=== PATIENT | female | born 1990 | race Two or more races ===

== ENCOUNTER 2017-01-27 12:55 | Inpatient (IN) | payer OTHER ==
[~2017-01-27] VITALS: Ht 152.4 cm; Wt 124.0 kg
[~2017-01-27 12:55] MED LIST: ADVAIR 250-501 EACH IH; ALLEGRA180 MG PO; CLONAZEPAM0.5 MG PO; CONCERTA27 MG PO; LEXAPRO20 MG PO; PROVENTIL17 GM IH; SINGULAIR10 MG PO
[2017-01-27 15:02] LABS: EOSINOPHIL (%) 0.4 % (0-5); HEMATOCRIT 44.9 % (36.0-46.0); IMMATURE GRANULOCYTE (%) 0.9 % (0.0-0.7); IMMATURE GRANULOCYTE COUNT 0.1 K/uL; INSTRUMENT ABS NEUTROPHIL CT 8.5 K/uL; LYMPHOCYTE COUNT 1.9 K/uL (1.0-2.8); MCH 28.7 PG (29.0-34.0); MCHC 32.5 G/DL (30.0-36.0); MCV 88.4 FL (83-99); MEAN PLAT.VOLUME 9.1 uM^3 (9.5-12.4); MONOCYTE (%) 5.2 % (3-12); MONOCYTE COUNT 0.6 K/uL (0-0.8); NEUTROPHIL (%) 76.1 % (45-76); NEUTROPHIL COUNT 8.5 K/uL (1.8-6.4); PLATELET COUNT 269 K/uL (156-360); RBC DIS.WIDTH-CV 13.4 % (11.8-14.6); RBC DIS.WIDTH-SD 43.5 % (39-53); RED BLOOD COUNT 5.08 M/uL (3.80-5.20); WHITE BLOOD COUNT 11.2 K/uL (4.1-10.2)
[2017-01-27 15:08] LABS: CHLORIDE 104 mEq/L (99-109); POTASSIUM 3.9 mEq/L (3.7-5.4); SODIUM 137 mEq/L (136-147)
[2017-01-27 15:09] LABS: MAGNESIUM 2.4 mg/dL (1.3-2.7)
[2017-01-27 15:10] LABS: GLUCOSE 190 mg/dL (70-99)
[2017-01-27 15:12] LABS: ANION GAP 12 MEQ/L (2-14); TOTAL BILIRUBIN 0.7 mg/dL (0.0-1.0)
[2017-01-27 15:14] LABS: ALKALINE PHOSPHATASE 60 IU/L (3-129); GFR ESTIMATE (CALCULATED) > 59 mL/min/
[2017-01-27 15:15] LABS: UREA NITROGEN (BUN) 19 mg/dL (9-23)
[2017-01-27] MEDS ORDERED: PLEXUS BLOCK PO (16:23)
[2017-01-27] MEDS ORDERED: FELDENE20 MG PO (16:23)
[2017-01-27] MEDS ORDERED: PLEXUS SLIM PO (16:23)
[2017-01-27] MEDS ORDERED: [UNRECOGNIZED DRUG - OTHER] PO (16:23)
[2017-01-27] MEDS ORDERED: PLEXUS BIO CLEANSE PO (16:24)
[2017-01-27] MEDS ORDERED: [UNRECOGNIZED DRUG - OTHER] PO (16:24)
[2017-01-27] MEDS ORDERED: PLEXUS PROBIO PO (16:24)
[2017-01-27] MEDS ORDERED: PLEXUS EASE PO (16:24)
[2017-01-27] MEDS ORDERED: [UNRECOGNIZED DRUG - OTHER] PO (16:25)
[2017-01-27] MEDS ORDERED: PLEXUS NERVE PO (16:25)
[2017-01-27 20:34] VITALS: BP 137/82
[2017-01-27 22:17] LABS: POINT-OF-CARE METER ID UU13113675
[2017-01-28 01:19] LABS: POINT-OF-CARE METER ID UU13113675
[2017-01-28 02:29] VITALS: BP 128/71
[2017-01-28 06:41] LABS: HEMATOCRIT 38.3 % (36.0-46.0); MCV 90.3 FL (83-99)
[2017-01-28 07:04] LABS: ANION GAP 10 MEQ/L (2-14); CHLORIDE 103 MEQ/L (99-109); GFR ESTIMATE (CALCULATED) > 59 mL/min/; GLUCOSE 189 mg/dL (70-99); SAMPLE HEMOLYSIS CHECK 0; SAMPLE ICTERIC CHECK 0; SAMPLE LIPEMIA CHECK 0; SODIUM 138 MEQ/L (136-147); UREA NITROGEN (BUN) 14 mg/dL (9-23)
[2017-01-28 08:14] VITALS: BP 119/70
[2017-01-28 11:22] VITALS: BP 128/72
[2017-01-28 16:59] VITALS: BP 126/70
[2017-01-28 20:17] VITALS: BP 131/70
[2017-01-28 22:01] LABS: POINT-OF-CARE METER ID UU14208753
[2017-01-29 00:16] VITALS: BP 117/59
[2017-01-29 03:22] VITALS: BP 122/71
[2017-01-29 06:37] LABS: POINT-OF-CARE METER ID UU14117124
[2017-01-29 08:11] VITALS: BP 134/79
[2017-01-29 11:23] LABS: POINT-OF-CARE METER ID UU14117124
[2017-01-29 15:24] VITALS: BP 120/70
[2017-01-30 00:38] VITALS: BP 97/59
[2017-01-30 07:00] LABS: POINT-OF-CARE METER ID UU14117124
[2017-01-30 07:54] VITALS: BP 125/61
[2017-01-30 15:54] VITALS: BP 144/74
[2017-01-30 16:27] LABS: POINT-OF-CARE METER ID UU14117124
[2017-01-30 21:19] LABS: POINT-OF-CARE METER ID UU14117124
[2017-01-30 23:15] VITALS: BP 122/65
[2017-01-31 06:35] LABS: POINT-OF-CARE METER ID UU14188577
[2017-01-31 08:09] VITALS: BP 124/65
[2017-01-31 11:08] LABS: POINT-OF-CARE METER ID UU14188577
[2017-01-31 11:52] LABS: POINT-OF-CARE METER ID UU14117124
[2017-01-31 16:27] LABS: POINT-OF-CARE METER ID UU14117124
[2017-01-31 16:39] VITALS: BP 128/73
[2017-01-31 21:42] LABS: POINT-OF-CARE METER ID UU14208753
[2017-01-31 23:32] VITALS: BP 111/53
[2017-02-01 06:12] LABS: POINT-OF-CARE METER ID UU14117124
[2017-02-01 08:06] VITALS: BP 120/69
[2017-02-01 08:09] VITALS: BP 120/69
[2017-02-01 11:25] LABS: POINT-OF-CARE METER ID UU14117124
[2017-02-01] MEDS ORDERED: ENDOCET 5-3251 EACH PO (13:10)
[2017-02-01] MEDS ORDERED: XARELTO10 MG PO (13:10)
[2017-02-01] MEDS ORDERED: SENOKOT S,PE1 TABLET PO (15:01)
[2017-02-01] MEDS ORDERED: VALIUM10 MG PO (15:02)
[2017-02-01] MEDS ORDERED: THERAGRAN1 TABLET PO (15:03)
[2017-02-01] MEDS ORDERED: VITAMIN D2000 UNI1 PO (15:04)
[2017-02-01] MEDS ORDERED: BENADRYL25 MG PO (15:05)
[2017-02-01] MEDS ORDERED: PERCOCET 10/1 TABLET PO (15:18)
== END 2017-02-01 14:12 | DRG 481 ==
LOC: EME 12:55 → EDOF 16:40 → 3EAST 16:40 → ENRESERV 16:42 → 3EAST 20:16
PROVIDERS: Emergency Medicine; Orthopaedic Surgery Sports Medicine
PROC: 0QS806Z Reposition Right Femoral Shaft with Intramedullary Internal Fixation Device, Open Approach (ICD-10-PCS; principal; 2017-01-28)
DX: S72.331A Displaced oblique fracture of shaft of right femur, initial encounter for closed fracture (principal); Z68.43 Body mass index [BMI] 50.0-59.9, adult; W19.XXXA Unspecified fall, initial encounter; E66.01 Morbid (severe) obesity due to excess calories; E11.9 Type 2 diabetes mellitus without complications; F84.0 Autistic disorder; F90.9 Attention-deficit hyperactivity disorder, unspecified type; J45.909 Unspecified asthma, uncomplicated; M19.90 Unspecified osteoarthritis, unspecified site
CPT/HCPCS: 73552; 76000; 80048; 80053; 81003; 82306; 82948; 83735; 84703; 85014; 85018; 85025; 86850; 86900; 86901; 93005; 97530 GP; 99281; 99285; C1713; J0330; J0690; J1100; J1170; J1815; J2060; J2250; J2270; J2405; J3010; J7030

== ENCOUNTER 2017-06-26 13:20 | Emergency (ER) | payer OTHER ==
[~2017-06-26] VITALS: Ht 154.9 cm; Wt 126.3 kg
[~2017-06-26 13:20] MED LIST changes: +BENADRYL25 MG PO; +CYCLOBENZAPRINE5 MG PO; +ENDOCET 5-3251 EACH PO; +FELDENE20 MG PO; +OXYCODONE HCL5 MG PO; +PERCOCET 10/1 TABLET PO; +PLEXUS BIO CLEANSE PO; +PLEXUS BLOCK PO; +PLEXUS EASE PO; +PLEXUS NERVE PO; +PLEXUS PROBIO PO; +PLEXUS SLIM PO; +SENOKOT S,PE1 TABLET PO; +THERAGRAN1 TABLET PO; +VALIUM10 MG PO; +VITAMIN D2000 UNI1 PO; +XARELTO10 MG PO; +[UNRECOGNIZED DRUG - OTHER] PO; +[UNRECOGNIZED DRUG - OTHER] PO; +[UNRECOGNIZED DRUG - OTHER] PO
[2017-06-26] MEDS ORDERED: INDOCIN50 MG PO (14:34)
[2017-06-26] MEDS ORDERED: VALIUM5 MG PO (14:34)
[2017-06-26 15:03] VITALS: BP 129/74
== END 2017-06-26 15:04 | disposition home or self-care (01) ==
LOC: EME 13:20
DX: M54.5 Low back pain (principal); E11.9 Type 2 diabetes mellitus without complications; J45.909 Unspecified asthma, uncomplicated; F32.9 Major depressive disorder, single episode, unspecified; F90.9 Attention-deficit hyperactivity disorder, unspecified type; F84.0 Autistic disorder; Z88.2 Allergy status to sulfonamides; Z88.1 Allergy status to other antibiotic agents; Z88.0 Allergy status to penicillin
CPT/HCPCS: 99281; 99283

== ENCOUNTER 2017-10-10 11:18 | Emergency (ER) | payer OTHER ==
[~2017-10-10] VITALS: Ht 154.9 cm; Wt 133.0 kg
[~2017-10-10 11:18] MED LIST changes: +INDOCIN50 MG PO; +VALIUM5 MG PO
[2017-10-10 12:33] LABS: APPEARANCE CLEAR ((CLEAR)); BILIRUBIN NEGATIVE; BLOOD SMALL; COLOR YELLOW ((YELLOW)); GLUCOSE (STRIP) NEGATIVE; KETONES NEGATIVE; LEUKOCYTES TRACE; NITRITE NEGATIVE; PROTEIN (STRIP) NEGATIVE; UROBILINOGEN 0.2 MG/DL (0.2-1.0)
[2017-10-10 12:40] LABS: BACTERIA NONE SEEN /HPF; EPITHELIAL CELLS 1+ /HPF; MUCUS TRACE /LPF; UCUL ADDED? NO; WHITE BLOOD CELLS 0-5 /HPF (0-5)
[2017-10-10 12:53] LABS: HEMATOCRIT 46.4 % (36.0-46.0); HEMOGLOBIN 14.9 G/DL (11.9-15.5); MCH 28.3 PG (29.0-34.0); MCHC 32.1 G/DL (30.0-36.0); PLATELET COUNT 246 K/uL (156-360); RBC DIS.WIDTH-CV 14.9 % (11.8-14.6); RED BLOOD COUNT 5.27 M/uL (3.80-5.20); WHITE BLOOD COUNT 10.8 K/uL (4.1-10.2)
[2017-10-10 13:02] LABS: ALBUMIN 4.3 g/dL (3.2-4.8); CHLORIDE 104 mEq/L (99-109); POTASSIUM 4.1 mEq/L (3.7-5.4); SODIUM 138 mEq/L (136-147)
[2017-10-10 13:04] LABS: GLUCOSE 146 mg/dL (70-99)
[2017-10-10 13:05] LABS: TOTAL PROTEIN 7.9 g/dL (6.4-8.3)
[2017-10-10 13:06] LABS: TOTAL BILIRUBIN 0.9 mg/dL (0.0-1.0)
[2017-10-10 13:08] LABS: ALKALINE PHOSPHATASE 60 IU/L (3-129); CREATININE 0.7 mg/dL (0.6-1.3); GFR ESTIMATE (CALCULATED) > 59 mL/min/
[2017-10-10 13:09] LABS: UREA NITROGEN (BUN) 19 mg/dL (9-23)
[2017-10-10 13:10] LABS: AST (GOT) 14 IU/L (2-34)
[2017-10-10 13:11] LABS: ALT (GPT) 23 IU/L (3-49)
[2017-10-10 13:19] LABS: QUANTITATIVE HCG < 4.0 MIU/ML
[2017-10-10] MEDS ORDERED: ZOFRAN ODT4 MG PO (15:44)
[2017-10-10] MEDS ORDERED: PERCOCET 5/31 TABLET PO (15:44)
[2017-10-10 16:23] VITALS: BP 132/65
== END 2017-10-10 16:24 | disposition home or self-care (01) ==
LOC: EME 11:18
DX: R10.9 Unspecified abdominal pain (principal); N20.0 Calculus of kidney; R11.2 Nausea with vomiting, unspecified; F84.0 Autistic disorder; E11.9 Type 2 diabetes mellitus without complications; Z88.0 Allergy status to penicillin; Z88.2 Allergy status to sulfonamides; Z88.1 Allergy status to other antibiotic agents
CPT/HCPCS: 74176; 80053; 81003; 82948; 84702; 85027; 99281; 99284; J2405; J7030

== ENCOUNTER 2017-11-10 13:02 | Emergency (ER) | payer OTHER ==
[~2017-11-10] VITALS: Ht 154.9 cm; Wt 135.6 kg
[~2017-11-10 13:02] MED LIST changes: +PERCOCET 5/31 TABLET PO; +ZOFRAN ODT4 MG PO
[2017-11-10 16:32] LABS: APPEARANCE CLOUDY ((CLEAR)); BILIRUBIN NEGATIVE; BLOOD MODERATE; COLOR YELLOW ((YELLOW)); GLUCOSE (STRIP) NEGATIVE; KETONES NEGATIVE; LEUKOCYTES SMALL; NITRITE NEGATIVE; PROTEIN (STRIP) NEGATIVE; SPECIFIC GRAVITY 1.024 (1.000-1.030); UROBILINOGEN 0.2 MG/DL (0.2-1.0)
[2017-11-10 16:44] LABS: BACTERIA RARE /HPF; EPITHELIAL CELLS RARE /HPF; MUCUS TRACE /LPF; RED BLOOD CELLS TNTC /HPF (0-5); UCUL ADDED? YES; WHITE BLOOD CELLS 0-5 /HPF (0-5)
[2017-11-10] MEDS ORDERED: MOTRIN800 MG PO (16:54)
[2017-11-10] MEDS ORDERED: FLEXERIL10 MG PO (16:54)
[2017-11-10 17:40] VITALS: BP 137/94
== END 2017-11-10 17:41 | disposition home or self-care (01) ==
LOC: EME 13:02
PROVIDERS: Nurse Practitioner Family
DX: R07.81 Pleurodynia (principal); R31.9 Hematuria, unspecified; Z87.442 Personal history of urinary calculi; E11.9 Type 2 diabetes mellitus without complications; F32.9 Major depressive disorder, single episode, unspecified; F84.0 Autistic disorder; F90.9 Attention-deficit hyperactivity disorder, unspecified type; J45.909 Unspecified asthma, uncomplicated; Z88.2 Allergy status to sulfonamides; Z88.1 Allergy status to other antibiotic agents; Z88.0 Allergy status to penicillin
CPT/HCPCS: 71101; 72100; 81003; 99281; 99284